=== PATIENT | male | born 1990 | race African-American/Black ===

== ENCOUNTER 2022-10-14 16:47 | Inpatient (IN) | payer OTHER ==
[~2022-10-14] VITALS: Ht 165.1 cm; Wt 85.1 kg
[2022-10-14] MEDS ORDERED: ACETAMINOPHEN TAB 650MG DOSE (2X325MG) PO ONE (17:45)
[2022-10-14 17:57] LABS: HEMOGLOBIN 14.6 g/dl (13.5-17.5); MEAN CORPUSCULAR HEMOGLOBIN 26.8 pg (27.0-33.0); MEAN CORPUSCULAR HGB CONC 31.7 g/dl (32.0-36.5); MEAN CORPUSCULAR VOLUME 84.6 fl (80.0-96.0); PLATELET COUNT, AUTOMATED 276 10^3/uL (150-450); RED BLOOD COUNT 5.44 10^6/uL (4.30-6.10); WHITE BLOOD COUNT 9.4 10^3/uL (4.0-10.0)
[2022-10-14 18:11] LABS: AMPHETAMINES LEVEL URINE NEGATIVE (NEGATIVE); BARBITURATES URINE NEGATIVE (NEGATIVE); BENZODIAZEPINES URINE NEGATIVE (NEGATIVE); CANNABINOIDS URINE NEGATIVE (NEGATIVE); COCAINE METABOLITE URINE NEGATIVE (NEGATIVE); METHADONE URINE NEGATIVE (NEGATIVE); OPIATES URINE NEGATIVE (NEGATIVE); PHENCYCLIDINE URINE NEGATIVE (NEGATIVE)
[2022-10-14 18:13] LABS: ETHYL ALCOHOL (ETHANOL) 0.003 % (0.000-0.010)
[2022-10-14 18:14] LABS: ACETAMINOPHEN LEVEL < 2.0 UG/ML (10.0-20.0)
[2022-10-14 18:15] LABS: ALBUMIN 4.8 G/DL (3.2-5.2); ALKALINE PHOSPHATASE 54 U/L (46-116); ALT/SGPT 31 U/L (7.0-40); AST/SGOT 21 U/L (<34); BILIRUBIN,DIRECT 0.2 MG/DL (<0.4); BILIRUBIN,TOTAL 0.6 MG/DL (0.3-1.2); BLOOD UREA NITROGEN 18 MG/DL (9-23); CALCIUM LEVEL 9.9 MG/DL (8.5-10.1); CARBON DIOXIDE LEVEL 29 MMOL/L (20-31); CHLORIDE LEVEL 104 MMOL/L (98-107); GLOMERULAR FILTRATION RATE > 60.0 (>60); GLUCOSE, FASTING 82 MG/DL (60-100); POTASSIUM SERUM 3.9 MMOL/L (3.5-5.1); SALICYLATE LEVEL < 3.0 MG/DL (<30); SODIUM LEVEL 140 MMOL/L (136-145); TOTAL PROTEIN 8.5 G/DL (5.7-8.2)
[2022-10-14 18:17] LABS: THYROID STIMULATING HORMONE 0.769 uIU/ML (0.55-4.78)
[2022-10-14] MEDS ORDERED: MED REC IN PROGRESS XX SCH (20:30)
[2022-10-14] MEDS ORDERED: HOME MED LIST COMPLETE! XX SCH (20:35)
[2022-10-14] MEDS ORDERED: MAALOX 30 ML SUSP *UDC PO PRN (22:10)
[2022-10-14] MEDS ORDERED: MOM 30ML SUSPENSION UDC PO PRN (22:10)
[2022-10-14] MEDS ORDERED: LORazepam 1 MG TAB PO PRN (22:10)
[2022-10-14 23:51] VITALS: BP 125/81; TEMP 96.2; O2SAT 100
[2022-10-15] MEDS: ACETAMINOPHEN TAB 650MG DOSE (2X325MG) PO PRN (06:20)
[2022-10-15 06:39] VITALS: BP 135/61; TEMP 96.7; O2SAT 100
[2022-10-15] MEDS ORDERED: ESCITALOPRAM OXALATE 5MG TABLET (LEXAPRO) PO ONE (10:50)
[2022-10-15 16:48] VITALS: BP 131/77; TEMP 98.2; O2SAT 100
[2022-10-15] MEDS: traZODone 50 MG TAB PO PRN (20:46)
[2022-10-16] MEDS: ACETAMINOPHEN TAB 650MG DOSE (2X325MG) PO PRN (06:13)
[2022-10-16 06:15] VITALS: BP 131/70; TEMP 96.8; O2SAT 100
[2022-10-16] MEDS: ESCITALOPRAM OXALATE 10 MG TAB (LEXAPRO) PO SCH (08:14)
[2022-10-16 18:56] VITALS: BP 139/78; TEMP 97.9
[2022-10-16] MEDS: traZODone 50 MG TAB PO PRN (20:34)
[2022-10-17 06:18] VITALS: BP 124/72; TEMP 98.5; O2SAT 100
[2022-10-17] MEDS: ESCITALOPRAM OXALATE 10 MG TAB (LEXAPRO) PO SCH (11:53)
[2022-10-17 18:00] VITALS: BP 130/74; TEMP 98
[2022-10-17] MEDS: traZODone 50 MG TAB PO PRN (21:55)
[2022-10-18 07:09] VITALS: BP 138/68; TEMP 97.2; O2SAT 99
[2022-10-18] MEDS: ESCITALOPRAM OXALATE 10 MG TAB (LEXAPRO) PO SCH (08:15)
[2022-10-18 17:01] VITALS: BP 118/68; TEMP 98.3; O2SAT 100
[2022-10-18] MEDS: traZODone 50 MG TAB PO PRN (20:24)
[2022-10-19] MEDS: ESCITALOPRAM OXALATE 10 MG TAB (LEXAPRO) PO SCH (08:56)
[2022-10-19 17:01] VITALS: BP 138/74; TEMP 98.6; O2SAT 100
[2022-10-19] MEDS: traZODone 50 MG TAB PO PRN (21:41)
[2022-10-20 06:43] VITALS: BP 133/67; TEMP 98.4; O2SAT 98
[2022-10-20] MEDS: ESCITALOPRAM OXALATE 10 MG TAB (LEXAPRO) PO SCH (08:24)
[2022-10-20] MEDS ORDERED: LEXA1TAB PO (10:05)
[2022-10-20] MEDS ORDERED: TRAZ-252 PO (10:05)
== END 2022-10-20 11:27 | disposition home or self-care (01) | DRG 881 ==
LOC: M ED 16:47 → M ED INP 22:09 → M PSY 23:30
PROVIDERS: ADMIT Student in an Organized Health Care Education/Training Program; ATTEND Student in an Organized Health Care Education/Training Program
DX: F32.A Depression, unspecified (principal); R45.851 Suicidal ideations; F10.10 Alcohol abuse, uncomplicated; Z63.0 Problems in relationship with spouse or partner; Z56.6 Other physical and mental strain related to work; Z65.3 Problems related to other legal circumstances; Z20.822 Contact with and (suspected) exposure to COVID-19